=== PATIENT | female | born 1980 | race Caucasian/White ===

== ENCOUNTER 2016-03-27 10:28 | Emergency (ER) | payer SELFPAY ==
--- NOTE | 2016-03-27 11:17 | ERRECORD ---
[facility] EMERGENCY RECORD HPI URI (11:02 JLOY) CHIEF COMPLAINT: Patient presents for evaluation of sore throat, Patient presents for evaluation of nasal congestion, Patient presents for evaluation of cough, Patient presents for evaluation of Pt with 3-4 weeks of cough and congestion. Pt reports the past 2-3 weeks with high fevers to 103-104 and bodyaches. diagnosed with Flu A. Pt reports last week she started taking some leftover amoxicillin and her fevers resolved. Pt reprots she is here because she is having continued aches and pains and cough and wonders if she needs a stronger abx. HISTORIAN: History provided by patient. LOCATION: Symptoms are localized, most severe to throat, sternum. TIME COURSE: Patient unable to describe onset of symptoms, Symptoms are improving, are intermittent. ASSOCIATED WITH: Associated with chest pain, No associated chills, No associated fever, No associated headache, No associated neck pain, No associated shortness of breath. EXACERBATED BY: Patient's condition exacerbated by nothing. RELIEVED BY: Patient's condition relieved by nothing. ROS (11:04 JLOY) CONSTITUTIONAL: Historian denies chills, denies fever. EYES: Historian denies eye pain, denies eye redness, denies eye discharge. ENT: Historian reports rhinorrhea, reports sore throat. CARDIOVASCULAR: Historian reports chest pain. RESPIRATORY: Historian reports cough, denies shortness of breath, reports sputum. green. GI: Historian denies abdominal pain, denies diarrhea, denies nausea, denies vomiting. GENITOURINARY FEMALE: Historian denies dysuria, denies frequency, denies hematuria. MUSCULOSKELETAL: Historian reports arthralgias, reports myalgias. SKIN: Historian denies rash, denies skin changes. NEUROLOGIC: Historian denies dizziness, denies headache. PAST MEDICAL HISTORY MEDICAL HISTORY: Flu vaccine up to date, Tetanus immunization up to date, Pneumococcal vaccine not up to date. (10:35 JPAR) FEMALE SURGICAL HISTORY: Patient has no surgical history. (10:35 JPAR) PSYCHIATRIC HISTORY: Notes: ADHD, Anxiety. (10:35 JPAR) SOCIAL HISTORY: Patient denies alcohol use, Patient denies drug use, Patient has no smoking history. (10:35 JPAR) NOTES: Nursing records reviewed, Agree with nursing records. (11:05 JLOY) &a-1R&a+25V*p+0X*c0980V*c202B*c15G*c2P*p-0X&a-25V&a+1R Name: Vicky Kerr : 1980 F35 MedRec: [id number] AcctNum: [id number] Prepared: sharon Mar 27, 2016 11:11 by Interface Page 1 of 3 pMD [facility] EMERGENCY RECORD KNOWN ALLERGIES azithromycin: Reaction: Hives, Severity: Mild, Source: Patient codeine phosphate: Reaction: Hives, Severity: Mild, Source: Parent CURRENT MEDICATIONS No recorded medications VITAL SIGNS VITAL SIGNS: BP: 139/91, Pulse: 102, Resp: 16, Temp: 97.9 (Oral), Pain: 9, O2 sat: 100, Time: 03/27/2016 10:30. (10:30 JPAR) Pulse: 86, Time: 03/27/2016 11:00. (11:00 EPIE) PHYSICAL EXAM (11:05 [facility]) CONSTITUTIONAL: Vital signs reviewed, Patient appears non toxic, Patient alert and oriented to person, place and time. EYES: Eye exam included findings of eyelids normal to inspection, Pupils equally round and reactive to light, Conjunctiva normal. ENT: Pharynx exam normal, Uvula exam normal, Tonsil exam normal, Mouth exam normal, mucous membranes moist, Sinus exam included findings of frontal sinuses with, tenderness on the right, Maxillary sinuses with, tenderness on the right. NECK: Neck exam included findings of normal range of motion, Trachea midline, Cervical adenopathy, tender. RESPIRATORY CHEST: Respiratory exam included findings of no respiratory distress, Breath sounds clear, No wheezing, No rales, No rhonchi, Chest exam included findings of chest movement symmetrical. CARDIOVASCULAR: Cardiovascular exam included findings of heart rate regular rate and rhythm, Heart sounds normal. ABDOMEN FEMALE: Abdominal exam included findings of abdomen nontender, Bowel sounds normal. NEURO: Elpidio coma scale 15, Neuro exam findings include patient oriented to person, place and time, Speech normal. PSYCHIATRIC: Normal affect. PROBLEM LIST No recorded problems DIAGNOSIS (11:00 JLOY) FINAL: PRIMARY: FLU D/T OTH ID FLU VIR OTH RSP MANF. PRESCRIPTION (11:00 JLOY) Tessalon Perles: CAPSULE (HARD, SOFT, ETC.) : 100 mg : ORAL : Quantity: 100-200 Unit: mg Route: ORAL Schedule: every 8 hours PRN Dispense: 30 May substitute. Refills: No Refills . NOTES: No Refills. traMADol: TABLET : 50 mg : ORAL : Quantity: 1 Unit: tab(s) Route: ORAL Schedule: every 8 hours PRN Dispense: 20 &a-1R&a+25V*p+0X*v6833N*c202B*c15G*c2P*p-0X&a-25V&a+1R Name: Vicky Kerr : 1980 5 MedRec: [id number] AcctNum: [id number] Prepared: SatMar 27, 2016 11:11 by Interface Page 2 of 3 pMD [facility] EMERGENCY RECORD May substitute. Refills: No Refills POTENTIAL ALLERGY REACTION: 'codeine phosphate [codeine/codeine phosphate]' Override Rationale: Reviewed with patient. NOTES: ^s=No Refills No Refills. DISPOSITION PATIENT: Disposition Type: Discharge, Disposition: *Discharge Home. (11:00 GUILLERMINA) Patient left the department. (11:07 PHAN) Ornelas: PHAN=SHARIF Calabrese, Elizabeth SARMIENTO=MD Geronimo, Greg AVILA=SHARIF Jones, Roberto &a-1R&a+25V*p+0X*[id number]*c202B*c15G*c2P*p-0X&a-25V&a+1R Name: Vicky Kerr : 1980 F35 MedRec: [id number] AcctNum: [id number] Prepared: SatMar 27, 2016 11:11 by Interface Page 3 of 3 pMD MTDD
--- NOTE | 2016-03-27 11:23 | PICIS ---
[facility] EMERGENCY RECORD TRIAGE (SatMar 27, 2016 10:32 JPAR) TRIAGE NOTES: Cough and sore throat for 1 month now. (SatMar 27, 2016 10:32 JPAR) PATIENT: NAME: Vicky Kerr, AGE: 35, GENDER: female, : Sat1980, TIME OF GREET: SatMar 27, 2016 10:28, PREFERRED LANGUAGE: Albanian, ECODE BILLING MAP: [facility], SSN: [id number], Zip Code: [address], KG WEIGHT: 49.44, PHONE: , , , PERSON ID: [id number], PCP: Mayela Berman /Unruly. (SatMar 27, 2016 10:32 JPAR) COMPLAINT: ALLERGIES. (SatMar 27, 2016 10:32 JPAR) ADMISSION: URGENCY: 4 Non Urgent, ADMISSION SOURCE: Home, TRANSPORT: CAR, BED: TRIAGE. (SatMar 27, 2016 10:32 JPAR) ASSESSMENT: Assessment: Sore throat chronic cough, runny nose, Symptoms began off and on for 1 month, Symptoms began greater than 1 week ago. (10:35 JPAR) SIRS SCORING: Heart Rate 55-109 (0), Temp range 96.8-101.1 (0), respiratory rate 12-24 (0), Mental Status altered: no (0), Infection or Suspected Infection: No. (10:35 JPAR) TRIAGE SCREENING: Patient denies suicidal ideation, Patient denies presence of domestic violence. (10:35 JPAR) PROVIDERS: TRIAGE NURSE: Roberto Jones RN. (SatMar 27, 2016 10:32 JPAR) VITAL SIGNS: BP 139/91, Pulse 102, Resp 16, Temp 97.9, (Oral), Pain 9, O2 Sat 100, Time 03/27/2016 10:30. (10:30 JPAR) KNOWN ALLERGIES azithromycin: Reaction: Hives, Severity: Mild, Source: Patient codeine phosphate: Reaction: Hives, Severity: Mild, Source: Parent CURRENT MEDICATIONS No recorded medications VITAL SIGNS VITAL SIGNS: BP: 139/91, Pulse: 102, Resp: 16, Temp: 97.9 (Oral), Pain: 9, O2 sat: 100, Time: 03/27/2016 10:30. (10:30 JPAR) Pulse: 86, Time: 03/27/2016 11:00. (11:00 EPIE) NURSING ASSESSMENT: ENT (10:33 JPAR) CONSTITUTIONAL: Patient arrives ambulatory, Gait steady, History obtained from patient, Patient appears comfortable, Patient cooperative, Patient alert, Oriented to person, place and time, Skin warm, Skin dry, Skin normal in color, Mucous membranes pink, Mucous membranes moist. PAIN: aching pain, burning pain, to the throat, on a scale 0-10 patient rates pain as 9, pt in no distress. ENT: Nasal assessment findings include nose normal to inspection, Sinuses normal, Nasal mucosa normal, no bleeding, no discharge, no &a-1R&a+25V*p+0X*b0700I*c202B*c15G*c2P*p-0X&a-25V&a+1R Name: Vicky Krer : 1980 F35 MedRec: [id number] AcctNum: [id number] Prepared: SatMar 27, 2016 11:17 by Interface Page 1 of 4 pMD [facility] EMERGENCY RECORD complaint of congestion, no complaint of foreign body, Mouth and throat assessment findings include mouth inspection normal, Uvula normal, Tonsils, swollen +1 on the left, swollen +1 on the right, without exudates, Mucous membranes pink, and moist, Unable to swallow, complains of difficulty swallowing, no associated fever, no associated headache, no associated decrease in oral intake. RESPIRATORY/CHEST: Breath sounds clear, Respiratory assessment findings include respiratory effort easy, Respirations regular, Conversing normally, Neck and chest exam findings include trachea midline, Chest expansion equal, Chest movement symmetrical, no signs of distress, no retractions noted, no cyanosis, no jugular vein distension, no tenderness to palpation, no crepitus noted, no subcutaneous emphysema noted, no deformity noted, Associated with cough, dry, no associated fever, no associated fume exposure. SAFETY: Side rails up, Cart/Stretcher in lowest position, Call light within reach, Hospital ID band on. NURSING PROCEDURE: DISCHARGE NOTE (11:04 EPIE) DISCHARGE: Patient discharged to home, ambulating without assistance, family driving, accompanied by parent, Summary of Care printed/ provided, Discharge instructions given to patient, Simple or moderate discharge teaching performed, Prescriptions given and instructions on side effects given, Name of prescription(s) given: TESSALON PERLES, TRAMADOL, Above person(s) verbalized understanding of discharge instructions and follow-up care. BELONGINGS: Belongings and valuables with patient upon arrival to the Emergency Department include:, Belongings and valuables with patient at time of discharge include:, Belongings remain with patient, Valuables remain with patient. HPI URI (11:02 [facility]) CHIEF COMPLAINT: Patient presents for evaluation of sore throat, Patient presents for evaluation of nasal congestion, Patient presents for evaluation of cough, Patient presents for evaluation of Pt with 3-4 weeks of cough and congestion. Pt reports the past 2-3 weeks with high fevers to 103-104 and bodyaches. diagnosed with Flu A. Pt reports last week she started taking some leftover amoxicillin and her fevers resolved. Pt reprots she is here because she is having continued aches and pains and cough and wonders if she needs a stronger abx. HISTORIAN: History provided by patient. LOCATION: Symptoms are localized, most severe to throat, sternum. TIME COURSE: Patient unable to describe onset of symptoms, Symptoms are improving, are intermittent. ASSOCIATED WITH: Associated with chest pain, No associated chills, No associated fever, No associated headache, No associated neck pain, No associated shortness of breath. EXACERBATED BY: Patient's condition exacerbated &a-1R&a+25V*p+0X*t6697M*c202B*c15G*c2P*p-0X&a-25V&a+1R Name: Vicky Kerr : 1980 F35 MedRec: [id number] AcctNum: [id number] Prepared: SatMar 27, 2016 11:17 by Interface Page 2 of 4 pMD [facility] EMERGENCY RECORD by nothing. RELIEVED BY: Patient's condition relieved by nothing. ROS (11:04 [facility]) CONSTITUTIONAL: Historian denies chills, denies fever. EYES: Historian denies eye pain, denies eye redness, denies eye discharge. ENT: Historian reports rhinorrhea, reports sore throat. CARDIOVASCULAR: Historian reports chest pain. RESPIRATORY: Historian reports cough, denies shortness of breath, reports sputum. green. GI: Historian denies abdominal pain, denies diarrhea, denies nausea, denies vomiting. GENITOURINARY FEMALE: Historian denies dysuria, denies frequency, denies hematuria. MUSCULOSKELETAL: Historian reports arthralgias, reports myalgias. SKIN: Historian denies rash, denies skin changes. NEUROLOGIC: Historian denies dizziness, denies headache. PAST MEDICAL HISTORY MEDICAL HISTORY: Flu vaccine up to date, Tetanus immunization up to date, Pneumococcal vaccine not up to date. (10:35 JPAR) FEMALE SURGICAL HISTORY: Patient has no surgical history. (10:35 JPAR) PSYCHIATRIC HISTORY: Notes: ADHD, Anxiety. (10:35 JPAR) SOCIAL HISTORY: Patient denies alcohol use, Patient denies drug use, Patient has no smoking history. (10:35 JPAR) NOTES: Nursing records reviewed, Agree with nursing records. (11:05 JLOY) PHYSICAL EXAM (11:05 JLOY) CONSTITUTIONAL: Vital signs reviewed, Patient appears non toxic, Patient alert and oriented to person, place and time. EYES: Eye exam included findings of eyelids normal to inspection, Pupils equally round and reactive to light, Conjunctiva normal. ENT: Pharynx exam normal, Uvula exam normal, Tonsil exam normal, Mouth exam normal, mucous membranes moist, Sinus exam included findings of frontal sinuses with, tenderness on the right, Maxillary sinuses with, tenderness on the right. NECK: Neck exam included findings of normal range of motion, Trachea midline, Cervical adenopathy, tender. RESPIRATORY CHEST: Respiratory exam included findings of no respiratory distress, Breath sounds clear, No wheezing, No rales, No rhonchi, Chest exam included findings of chest movement symmetrical. CARDIOVASCULAR: Cardiovascular exam included findings of heart rate regular rate and rhythm, Heart sounds normal. ABDOMEN FEMALE: Abdominal exam included findings of abdomen &a-1R&a+25V*p+0X*p6873K*c202B*c15G*c2P*p-0X&a-25V&a+1R Name: Vicky Kerr : 1980 F35 MedRec: [id number] AcctNum: [id number] Prepared: Castillo Mar 27, 2016 11:17 by Interface Page 3 of 4 pMD [facility] EMERGENCY RECORD nontender, Bowel sounds normal. NEURO: Elpidio coma scale 15, Neuro exam findings include patient oriented to person, place and time, Speech normal. PSYCHIATRIC: Normal affect. EVENTS TRANSFER: Triage to Emergency Triage. (10:32 JPAR) Emergency Triage to Emergency Room -03. (10:33 EPIE) Removed from Emergency Emergency Room -03. (11:07 EPIE) PROBLEM LIST No recorded problems DIAGNOSIS (11:00 JLOY) FINAL: PRIMARY: FLU D/T OTH ID FLU VIR OTH RSP MANF. DISPOSITION PATIENT: Disposition Type: Discharge, Disposition: *Discharge Home. (11:00 JLOY) Patient left the department. (11:07 EPIE) INSTRUCTION (11: JLOY) DISCHARGE: INFLUENZA (ADULT). FOLLOWUP: [facility], /[facility], [address] [place] [id number], , Follow up with Primary Care Physician in 7-10 days. PRESCRIPTION (11:00 JLOY) Tessalon Perles: CAPSULE (HARD, SOFT, ETC.) : 100 mg : ORAL : Quantity: 100-200 Unit: mg Route: ORAL Schedule: every 8 hours PRN Dispense: 30 May substitute. Refills: No Refills . NOTES: No Refills. traMADol: TABLET : 50 mg : ORAL : Quantity: 1 Unit: tab(s) Route: ORAL Schedule: every 8 hours PRN Dispense: 20 May substitute. Refills: No Refills POTENTIAL ALLERGY REACTION: 'codeine phosphate [codeine/codeine phosphate]' Override Rationale: Reviewed with patient. NOTES: ^s=No Refills No Refills. IMAGING (11:05 EPIE) *DISCHARGE INSTRUCTIONS RECEIPT: Image captured from scanner. *SUPPLY CHARGE SHEET: Image captured from scanner. ADMIN (11: ) DIGITAL SIGNATURE: MD Melton Joshua. Ornelas: PHAN=SHARIF Calabrese Emily JLOY=MD Melton Joshua JPBERE=SHARIF Jones, Roberto &cookie-1R&a+25V*p+0X*o4940T*c202B*c15G*c2P*p-0X&a-25V&a+1R Name: Vicky Kerr : 1980 F35 MedRec: [id number] AcctNum: [id number] Prepared: Castillo Mar 27, 2016 11:17 by Interface Page 4 of 4 pMD MTDD
== END 2016-03-27 11:04 | disposition home or self-care (01) ==
LOC: NAV ERS 10:28
DX: J10.1 Influenza due to other identified influenza virus with other respiratory manifestations (principal); F41.9 Anxiety disorder, unspecified
CPT/HCPCS: 99283

== ENCOUNTER 2017-03-25 17:17 | Emergency (ER) | payer MEDICAID, SELFPAY ==
[2017-03-25] MEDS ORDERED: Ibuprofen 800 MG TAB ONE (18:08)
== END 2017-03-25 19:32 | disposition home or self-care (01) ==
LOC: NAV ERS 17:17 → EEVIPCON 17:17 → NAV ERS 19:32
DX: T74.21XA Adult sexual abuse, confirmed, initial encounter (principal); R10.2 Pelvic and perineal pain; F90.9 Attention-deficit hyperactivity disorder, unspecified type; F41.9 Anxiety disorder, unspecified
CPT/HCPCS: 99283

== ENCOUNTER 2017-09-24 22:40 | Emergency (ER) | payer MEDICAID ==
[2017-09-24 23:07] LABS: #Basophils 0.1 thou/uL (0.0-0.2); #Eosinphils 0.1 thou/uL (0.0-0.7); #Monocytes 0.5 thou/uL (0.11-0.59); #Neutrophils 5.6 thou/uL (1.40-6.50); %Basophils 1.1 % (0.0-1.0); %Eosinophils 0.9 % (0.0-10.0); %Lymphocytes 24.2 % (21.0-51.0); %Monocytes 5.9 % (0.0-10.0); Hemoglobin 11.7 g/dL (12.0-16.0); Mean Corpuscular HGB CONC 32.2 g/dL (32.0-36.0); Mean Corpuscular Hemoglobin 27.7 pg (27.0-31.0); Mean Corpuscular Volume 86.1 fL (78.0-98.0); Mean Platelet Volume 6.9 fL (7.4-10.4); Platelet Count 307 thou/uL (130-400); RBC Distribution Width 13.6 % (11.5-14.5); Red Blood Cell (RBC) Count 4.22 mill/uL (4.20-5.40); White Blood Cell (WBC) Count 8.3 thou/uL (4.8-10.8)
[2017-09-24 23:10] LABS: Manual Diff?? NO
[2017-09-24 23:15] LABS: Bilirubin Negative (Negative); Blood, Urine Negative (Negative); Clarity Clear (Clear); Glucose, Urine (Dipstick) Negative (Negative); Leukocyte Negative (Negative); Nitrite Negative (Negative); Protein, Urine (Dipstick) 100 mg/dL (Neg-Trace); Urobilinogen 0.2 mg/dL (0.2-1.0)
[2017-09-24 23:16] LABS: Specific Gravity, Urine 1.027 (1.002-1.036)
[2017-09-24 23:17] LABS: Bacteria/HPF None Seen HPF (None Seen); RBC/HPF None Seen HPF (0-3); Squamous Epithelial 0-3 HPF (0-3); WBC/HPF None Seen HPF (0-3)
[2017-09-24] MEDS ORDERED: Sodium Chloride 0.9% 1,000 ML ONE (23:17)
[2017-09-24 23:28] LABS: ALT (SGPT) 16 U/L (8-55); AST (SGOT) 18 U/L (5-34); Acetaminophen Less than 6.0 mcg/mL (10.0-30.0); Albumin 4.1 g/dL (3.5-5.0); Alcohol Less than 10 mg/dL (Less than 10); Alkaline Phosphatase 70 U/L (40-150); Anion Gap 14 mmol/L (10-20); BUN (Urea Nitrogen) 7 mg/dL (7.0-18.7); Bilirubin, Total 0.3 mg/dL (0.2-1.2); CK (CPK) 197 U/L (29-168); Calc. Creatinine Clearance 0 mL/min (70-130); Calcium 9.3 mg/dL (7.8-10.44); Carbon Dioxide 25 mmol/L (22-29); Chloride 106 mmol/L (98-107); Estimated GFR-MDRD Greater than 90; Globulin 3.1 g/dL (2.4-3.5); Glucose 93 mg/dL (70-105); Potassium 3.9 mmol/L (3.5-5.1); Protein, Total 7.2 g/dL (6.0-8.3); Salicylate Less than 8.0 mg/dL (15.0-30.0); Sodium 141 mmol/L (136-145)
[2017-09-24 23:28] LABS: Amphetamine Detected (NotDetected); Barbiturates Screen Not Detected (NotDetected); Benzodiazepine Screen Not Detected (NotDetected); Cocaine Metabolite Screen Not Detected (NotDetected); Medtox Control Line Valid? VALID (VALID); Methadone Not Detected (NotDetected); Methamphetamine Detected (NotDetected); Opiate Screen Not Detected (NotDetected); Oxycodone Screen Not Detected (NotDetected); Phencyclidine (PCP) Not Detected (NotDetected); THC/Cannabinoid Screen Not Detected (NotDetected); Tricyclic Screen Not Detected (NotDetected)
[2017-09-24] MEDS ORDERED: Lorazepam 2 MG/ML VIAL ONE (23:40)
== END 2017-09-24 23:55 ==
LOC: NAV ERS 22:40
DX: F15.10 Other stimulant abuse, uncomplicated (principal)
CPT/HCPCS: 36415; 51701; 80053; 80306; 80307; 81003; 81015; 82550; 85025; 96361; 96374; A4353; J2060; J7050

== ENCOUNTER 2019-04-09 22:30 | Emergency (ER) | payer MEDICAID, SELFPAY ==
[2019-04-09 22:53] LABS: Bilirubin Negative (Negative); Blood, Urine Negative (Negative); Clarity Clear (Clear); Glucose, Urine (Dipstick) Negative (Negative); Leukocyte Negative (Negative); Nitrite Negative (Negative); Protein, Urine (Dipstick) Negative (Neg-Trace); Urobilinogen 0.2 mg/dL (Less than 2)
[2019-04-09 22:54] LABS: Pregnancy Test - Urine (BHCG) Negative (Negative); Pregu Control Background? CLEAR/WHITE (CLR/WHITE); Pregu Control Bar Appear? YES (CONTROL BAR); Specific Gravity 1.025 (1.002-1.036)
[2019-04-09 22:59] LABS: #Basophils 0.1 thou/uL (0.0-0.2); #Monocytes 0.5 thou/uL (0.11-0.59); #Neutrophils 3.6 thou/uL (1.40-6.50); %Eosinophils 0.7 % (0.0-10.0); %Monocytes 8.6 % (0.0-10.0); %Neutrophils 57.7 % (42.0-75.0); Hemoglobin 10.2 g/dL (12.0-16.0); Mean Corpuscular HGB CONC 31.5 g/dL (32.0-36.0); Mean Corpuscular Hemoglobin 26.6 pg (27.0-31.0); Mean Corpuscular Volume 84.3 fL (78.0-98.0); Mean Platelet Volume 5.7 fL (7.4-10.4); Platelet Count 394 thou/uL (130-400); RBC Distribution Width 13.8 % (11.5-14.5); Red Blood Cell (RBC) Count 3.84 mill/uL (4.20-5.40); White Blood Cell (WBC) Count 6.1 thou/uL (4.8-10.8)
[2019-04-09] MEDS ORDERED: Potassium Chloride 20 MEQ TAB ONE (23:17)
[2019-04-09 23:19] LABS: ALT (SGPT) 10 U/L (8-55); AST (SGOT) 14 U/L (5-34); Albumin 3.9 g/dL (3.5-5.0); Alkaline Phosphatase 72 U/L (40-110); Anion Gap 14 mmol/L (10-20); BUN (Urea Nitrogen) 11 mg/dL (7.0-18.7); Bilirubin, Total 0.3 mg/dL (0.2-1.2); Calc. Creatinine Clearance 0 mL/min (70-130); Calcium 8.7 mg/dL (7.8-10.44); Carbon Dioxide 25 mmol/L (22-29); Chloride 104 mmol/L (98-107); Estimated GFR-MDRD Greater than 90; Globulin 3.3 g/dL (2.4-3.5); Glucose 61 mg/dL (70-105); Lipase 22 U/L (8-78); Protein, Total 7.2 g/dL (6.0-8.3); Sodium 140 mmol/L (136-145)
[2019-04-09 23:20] LABS: Potassium 2.5 mmol/L (3.5-5.1)
[2019-04-09] MEDS ORDERED: Ibuprofen 200 MG TAB ONE ×2 (23:21→23:22)
--- NOTE | 2019-04-09 23:29 | CT ---
CT Stone Protocol History: Abdominal pain Comparison: CT abdomen and pelvis 2018 Findings: Lung bases are clear. No pericardial effusion. No nephroureterolithiasis or hydroureteronephrosis. No secondary evidence of a recently passed stone. Slight elbow enlargement of the right adnexal mass. Small volume free fluid within the pelvis. This a dnexal mass measures up to 10 cm in craniocaudal dimension. No definite left adnexal mass is appreciated as was seen on the prior exam. The appendix is felt to be visualized and is normal. No retroperitoneal periaortic adenopathy. Simple cyst hepatic segment 5. Noncontrast evaluation of the spleen, pancreas, adrenal glands are unremarkable. No acute osseous abnormality. Impression: 1. Enlarging right adnexal mass. This may reflect an endometrioma or malignant process. Nonemergent p elvic MRI with and without contrast recommended. 2. Small volume free fluid in the pelvis. 3. No nephroureterolithiasis or hydroureteronephrosis. No secondary evidence of a recently passed sto ne.
== END 2019-04-10 00:05 | disposition home or self-care (01) ==
LOC: NAV ERS 22:30
DX: N83.8 Other noninflammatory disorders of ovary, fallopian tube and broad ligament (principal); E87.6 Hypokalemia; E16.2 Hypoglycemia, unspecified; E78.5 Hyperlipidemia, unspecified; F41.9 Anxiety disorder, unspecified; F90.9 Attention-deficit hyperactivity disorder, unspecified type; Z79.899 Other long term (current) drug therapy
CPT/HCPCS: 74176; 80053; 81003; 81025; 83690; 85025

== ENCOUNTER 2019-10-18 08:03 | Emergency (ER) | payer OTHER ==
[2019-10-18] MEDS ORDERED: Iopamidol 370 76% 100 ML VIAL ONE (09:00)
[2019-10-18 09:06] LABS: #Basophils 0.1 thou/uL (0.0-0.2); #Lymphocytes 1.8 thou/uL (1.20-3.40); #Monocytes 0.8 thou/uL (0.11-0.59); #Neutrophils 7.2 thou/uL (1.40-6.50); %Eosinophils 0.3 % (0.0-10.0); %Monocytes 7.6 % (0.0-10.0); %Neutrophils 73.1 % (42.0-75.0); Hemoglobin 9.1 g/dL (12.0-16.0); Mean Corpuscular HGB CONC 30.6 g/dL (32.0-36.0); Mean Corpuscular Hemoglobin 27.6 pg (27.0-31.0); Mean Corpuscular Volume 90.1 fL (78.0-98.0); Mean Platelet Volume 5.7 fL (7.4-10.4); Platelet Count 553 thou/uL (130-400); RBC Distribution Width 14.5 % (11.5-14.5); Red Blood Cell (RBC) Count 3.32 mill/uL (4.20-5.40); White Blood Cell (WBC) Count 9.9 thou/uL (4.8-10.8)
[2019-10-18] MEDS ORDERED: Ketorolac Tromethamine 30 MG/ML VIAL ONE (09:10)
[2019-10-18] MEDS ORDERED: Sodium Chloride 0.9% 1,000 ML ONE (09:10)
[2019-10-18 09:23] LABS: ALT (SGPT) 19 U/L (8-55); AST (SGOT) 14 U/L (5-34); Albumin 3.9 g/dL (3.5-5.0); Alkaline Phosphatase 167 U/L (40-110); Anion Gap 15 mmol/L (10-20); BUN (Urea Nitrogen) 11 mg/dL (7.0-18.7); Bilirubin, Total 0.2 mg/dL (0.2-1.2); Calc. Creatinine Clearance 0 mL/min (70-130); Calcium 9.3 mg/dL (7.8-10.44); Carbon Dioxide 25 mmol/L (22-29); Chloride 104 mmol/L (98-107); Estimated GFR-MDRD Greater than 90; Globulin 3.7 g/dL (2.4-3.5); Glucose 101 mg/dL (70-105); Lipase 15 U/L (8-78); Potassium 3.1 mmol/L (3.5-5.1); Protein, Total 7.6 g/dL (6.0-8.3); Sodium 141 mmol/L (136-145)
[2019-10-18] MEDS ORDERED: Morphine 4 MG/ML VIAL ONE (09:24)
[2019-10-18] MEDS ORDERED: Ondansetron PF 4 MG/2 ML Vial ONE (09:24)
[2019-10-18] MEDS ORDERED: Sodium Chloride 0.9% 100 ML ONE (10:24)
[2019-10-18] MEDS ORDERED: Piperacillin/Tazobactam 3.375 GM VIAL ONE (10:24)
[2019-10-18 10:47] LABS: Bilirubin Negative (Negative); Blood, Urine Trace (Negative); Clarity Clear (Clear); Glucose, Urine (Dipstick) Negative (Negative); Ketone, Urine Negative (Negative); Leukocyte Negative (Negative); Nitrite Negative (Negative); Protein, Urine (Dipstick) Negative (Neg-Trace)
--- NOTE | 2019-10-18 10:48 | CT ---
ABDOMEN AND PELVIC CT SCAN WITH IV CONTRAST: HISTORY: Right lower quadrant abdominal pain status post hysterectomy. COMPARISON: Noncontrast abdomen and pelvic CT scan, 04/09/2019. FINDINGS: Visualized lung bases are unremarkable. Circumscribed 1.3 cm diameter low-attenuation focus in the right lobe of the liver is stable. Gallbl adder, common bile duct, pancreas, spleen, and adrenal glands are unremarkable. No evidence for sabino l calculus or acute obstruction. No solid or cystic renal mass. In the pelvis, there is a bilobe d fluid collection with a minimally enhancing wall around it, the largest component of this measures 4.8 x 5.8 x 6.3 cm. The smaller component of this bilobed fluid collection measures 1.9 x 2.2 x 1.8 cm. There is some nonspecific scattered pelvic fat stranding. This bilobed fluid collection appears to be primarily positioned between the rectum and urinary bladder. Resulting in some left displaceme nt of the rectal sigmoid portion of the colon. IMPRESSION: Bilobed fluid collection in the pelvis as above, evidence for a postoperative fluid collection withou t evidence for gas within the collection. Nonspecific fat stranding within the lower abdomen and pel vis. No evidence for other acute process. This abnormal fluid collection does not appear to be amenable to percutaneous drainage. POS: OFF
[2019-10-18 11:14] LABS: RBC/HPF 0-3 HPF (0-3); WBC/HPF 0-3 HPF (0-3)
[2019-10-18 11:15] LABS: Specific Gravity, Urine Greater than 1.050 (1.005-1.030)
== END 2019-10-18 11:05 | disposition short-term general hospital (02) ==
LOC: NAV ERS 08:03
DX: R10.31 Right lower quadrant pain (principal); F41.9 Anxiety disorder, unspecified; F90.9 Attention-deficit hyperactivity disorder, unspecified type; F17.210 Nicotine dependence, cigarettes, uncomplicated; J45.909 Unspecified asthma, uncomplicated; Z79.899 Other long term (current) drug therapy
CPT/HCPCS: 74177; 80053; 81003; 81015; 83690; 85025; 96365; 96375; J1885; J2270; J2405; J2543; J3490; J7050; Q9967

== ENCOUNTER 2019-10-27 19:19 | Emergency (ER) | payer OTHER ==
[2019-10-27] MEDS ORDERED: traMADol HCl 50 MG TAB ONE (19:58)
== END 2019-10-27 19:57 | disposition home or self-care (01) ==
LOC: NAV ERS 19:19
DX: G89.18 Other acute postprocedural pain (principal); R10.31 Right lower quadrant pain; F90.9 Attention-deficit hyperactivity disorder, unspecified type; F17.290 Nicotine dependence, other tobacco product, uncomplicated; J45.909 Unspecified asthma, uncomplicated; Z79.899 Other long term (current) drug therapy
CPT/HCPCS: 99283

== ENCOUNTER 2019-10-30 15:56 | Emergency (ER) | payer OTHER ==
[~2019-10-30 15:56] MED LIST: Iopamidol 370 76% 100 ML VIAL ONE
[2019-10-30] MEDS ORDERED: Sodium Chloride 0.9% 1,000 ML ONE (16:26)
[2019-10-30] MEDS ORDERED: Ketorolac Tromethamine 30 MG/ML VIAL ONE (16:26)
[2019-10-30 16:39] LABS: #Eosinphils 0.1 thou/uL (0.0-0.7); #Lymphocytes 0.8 thou/uL (1.20-3.40); #Monocytes 0.2 thou/uL (0.11-0.59); #Neutrophils 9.2 thou/uL (1.40-6.50); %Basophils 0.3 % (0.0-1.0); %Eosinophils 0.6 % (0.0-10.0); %Lymphocytes 7.6 % (21.0-51.0); %Monocytes 1.5 % (0.0-10.0); %Neutrophils 90.1 % (42.0-75.0); Hemoglobin 10.5 g/dL (12.0-16.0); Mean Corpuscular Hemoglobin 27.6 pg (27.0-31.0); Mean Platelet Volume 5.8 fL (7.4-10.4); Platelet Count 483 thou/uL (130-400); RBC Distribution Width 14.4 % (11.5-14.5); Red Blood Cell (RBC) Count 3.81 mill/uL (4.20-5.40); White Blood Cell (WBC) Count 10.2 thou/uL (4.8-10.8)
[2019-10-30 16:54] LABS: ALT (SGPT) 15 U/L (8-55); AST (SGOT) 15 U/L (5-34); Albumin 3.7 g/dL (3.5-5.0); Alkaline Phosphatase 112 U/L (40-110); Anion Gap 12 mmol/L (10-20); BUN (Urea Nitrogen) 8 mg/dL (7.0-18.7); Bilirubin, Total 0.2 mg/dL (0.2-1.2); Calc. Creatinine Clearance 0 mL/min (70-130); Calcium 8.6 mg/dL (7.8-10.44); Carbon Dioxide 26 mmol/L (22-29); Chloride 104 mmol/L (98-107); Estimated GFR-MDRD 87; Globulin 3.3 g/dL (2.4-3.5); Glucose 115 mg/dL (70-105); Potassium 3.9 mmol/L (3.5-5.1); Sodium 138 mmol/L (136-145)
[2019-10-30 16:57] LABS: Lipase 22 U/L (8-78)
--- NOTE | 2019-10-30 17:23 | CT ---
EXAM: CT ABDOMEN AND PELVIS HISTORY: Abdominal pain. Status post hysterectomy. Recent infected fluid in the pelvis. COMPARISON: 10/18/2019 Procedure: Multiple contiguous axial images were obtained and a CT of the abdomen and pelvis with IV contrast. C oronal reformats were performed. FINDINGS: Lower Chest: Minimal dependent atelectatic change Vessels: Normal caliber aorta. Heart: Normal heart size Abdomen: Portal vein:Patent Gallbladder: Contracted, likely due to a nonfasting state Liver: Stable hypodensity in the right hepatic lobe compatible with hepatic cysts. Additional smaller hypodensities are redemonstrated. No enhancing masses within the liver Pancreas: within normal limits. Spleen: within normal limits. Adrenals: within normal limits. Kidneys: Symmetric enhancement. No obstructive uropathy. Peritoneum: No ascites or free air, no fluid collection. Bowel: Limited evaluation due to the lack of oral contrast administration. No evidence of bowel obstr uction. Ileocecal junction is unremarkable. Normal caliber appendix. Scattered fecal material in a nondistended, nondilated colon. There is mild mucosal thickening involving the distal sigmoid colon a nd rectum. Mucosal prominence may in part due to inadequate distention. Possible focus of phlegmon adjacent to the sigmoid colon measuring 1.2 x 1.6 cm with a small focus of air. Second consideration could be just a loop of unopacified bowel. Mesentery and Retroperitoneum: No enlarged mesenteric or retroperitoneal lymph nodes. Abdominal Wall: within normal limits. Pelvis: Reproductive Organs: Surgically absent uterus Pelvis: No mass, lymphadenopathy, free air. Previous noted fluid collection has resolved. Minimal str anding and minimal fluid in the posterior aspect of the pelvis is identified. No evidence of a intrapelvic abscess. Bladder: within normal limits. Bones: within normal limits. IMPRESSION: 1. Interval resolution of previously noted complex fluid collection in the pelvis. 2. No acute abnormality with regards to the abdomen. 3. Mild mucosal thickening involving the distal sigmoid colon, nonspecific. Findings may be due to in adequate distention. Possible small focus of phlegmon adjacent to the sigmoid colon measuring 1.2 x 1.6 cm. Clinical correlation for proctitis in the appropriate clinical setting is recommended. Genera l surgical consultation and repeat CT with rectal contrast. Results study discussed with Dr. Flores 10/30/2019 at 5:18 PM Code CR
[2019-10-30 17:44] LABS: Bilirubin Negative (Negative); Blood, Urine Trace (Negative); Clarity Clear (Clear); Glucose, Urine (Dipstick) Negative (Negative); Ketone, Urine Negative (Negative); Leukocyte Negative (Negative); Nitrite Negative (Negative); Protein, Urine (Dipstick) Negative (Neg-Trace)
[2019-10-30 17:57] LABS: RBC/HPF 0-3 HPF (0-3)
--- NOTE | 2019-10-30 19:26 | CT ---
ABDOMEN CT WITHOUT CONTRAST PELVIC CT WITHOUT CONTRAST 10/30/19 HISTORY: Previous pelvic infection. Evaluate for possible abscess/phlegmon. COMPARISON: 10/30/19 at 4:47 p.m. FINDINGS: Abdomen and pelvic CT are repeated with rectal contrast. Dependent atelectatic changes in the lung bases are redemonstrated. No acute abnormality with regards to the solid organs. There is excretion of contrast into a normal caliber intrarenal and extrarenal collecting system. Multiple normal caliber small bowel loops are identified. Normal ileocecal junctio n. Appendix is difficult to appreciate. No obvious secondary signs of appendicitis. Contrast opacifie s the colon. Previously noted mucosal prominence of the distal sigmoid colon and rectum is less evide nt after adequate contrast distention. There does appear to be some mild nonspecific pelvic fat stran ding and fluid. No evidence of abscess or previously suggested possible phlegmon. PELVIC CT: Contrast is present in the urinary bladder. Uterus is surgically absent. IMPRESSION: 1. Adequate distention of the sigmoid colon and rectum after the administration of rectal contra st. No obvious inflammatory changes of the mucosa are appreciated. 2. Residual fluid and mild pelvic fat stranding may represent sequela of previous surgery. 3. Limited evaluation of the appendix on the current exam. No secondary signs of appendicitis. POS: PPP
== END 2019-10-30 19:05 | disposition home or self-care (01) ==
LOC: NAV ERS 15:56
DX: G89.18 Other acute postprocedural pain (principal); R10.11 Right upper quadrant pain; J45.909 Unspecified asthma, uncomplicated; F90.9 Attention-deficit hyperactivity disorder, unspecified type; F41.9 Anxiety disorder, unspecified; G47.00 Insomnia, unspecified; F17.290 Nicotine dependence, other tobacco product, uncomplicated; Z79.899 Other long term (current) drug therapy
CPT/HCPCS: 74176; 74177; 80053; 81003; 81015; 83690; 85025; 96361; 96374; J1885; J7050; Q9967

== ENCOUNTER 2020-04-11 20:07 | Outpatient (CLI) | payer OTHER ==
--- NOTE | 2020-04-11 21:28 | RAD ---
THORACOLUMBAR SPINE TWO VIEWS: History: Pain Comparison: None FINDINGS: The lumbar spine has 13 degrees of levoscoliosis. No acute fracture or malalignment. No significant l isthesis. Low grade facet arthrosis L4-5 and L5-S1. IMPRESSION: Low grade 13 degree lumbar levoscoliosis. POS: HOME
--- NOTE | 2020-04-11 21:30 | RAD ---
CHEST TWO VIEWS: History: Thoracic spine pain Comparison: None FINDINGS: Low grade dextroscoliosis of the thoracic space approximately 10 degrees. Lungs are clear. No pneumot horax. No effusion. Cardiac silhouette and mediastinal contours are within normal limits. IMPRESSION: 10 degrees dextroscoliosis of the thoracic spine. No acute thoracic abnormality. POS: HOME
== END 2020-04-11 20:08 | disposition home or self-care (01) ==
LOC: NAV RAD 20:07
PROVIDERS: ATTEND Nurse Practitioner Family
DX: M54.6 Pain in thoracic spine (principal); M41.9 Scoliosis, unspecified
CPT/HCPCS: 71046; 72080

== ENCOUNTER 2020-04-11 20:54 | Emergency (ER) | payer OTHER ==
[2020-04-12 13:45] LABS: SARS-CoV-2 PCR by NAA Not Detected (NotDetected)
== END 2020-04-11 21:50 | disposition home or self-care (01) ==
LOC: NAV ERS 20:54
DX: J06.9 Acute upper respiratory infection, unspecified (principal); Z20.822 Contact with and (suspected) exposure to COVID-19; J45.909 Unspecified asthma, uncomplicated; Z79.899 Other long term (current) drug therapy; F17.210 Nicotine dependence, cigarettes, uncomplicated; M54.6 Pain in thoracic spine; M41.9 Scoliosis, unspecified
CPT/HCPCS: 71046; 72080; 87635; 99283; U0003; U0005

== ENCOUNTER 2020-10-01 11:31 | Emergency (ER) | payer OTHER, SELFPAY | END 2020-10-01 12:08 | disposition left against medical advice (07) | LOC: NAV ERS 11:31 | DX: Z53.21 Procedure and treatment not carried out due to patient leaving prior to being seen by health care provider (principal) ==

== ENCOUNTER 2023-07-23 16:52 | Emergency (ER) | payer MEDICAID, OTHER, SELFPAY ==
[2023-07-23] MEDS ORDERED: Ondansetron ODT 4 MG TAB ONE (17:41)
== END 2023-07-23 17:50 | disposition short-term general hospital (02) ==
LOC: NAV ERS 16:52
DX: M79.605 Pain in left leg (principal); J45.909 Unspecified asthma, uncomplicated
CPT/HCPCS: 99284; Q0162

== ENCOUNTER 2024-02-05 20:17 | Emergency (ER) | payer SELFPAY | END 2024-02-05 20:45 | disposition home or self-care (01) | LOC: NAV ERS 20:17 | DX: S80.02XA Contusion of left knee, initial encounter (principal); S80.01XA Contusion of right knee, initial encounter; I95.9 Hypotension, unspecified; K02.9 Dental caries, unspecified; W18.30XA Fall on same level, unspecified, initial encounter | CPT/HCPCS: 99283 ==

== ENCOUNTER 2024-10-10 10:31 | Emergency (ER) | payer SELFPAY ==
[2024-10-10 11:12] LABS: Glucose, Urine (Dipstick) Negative (Negative); Leukocyte Small (Negative); Protein, Urine (Dipstick) Negative (Neg-Trace); Specific Gravity, Urine 1.020 (1.005-1.030)
[2024-10-10 11:21] LABS: Cocaine Metabolite Screen Negative (Negative); THC/Cannabinoid Screen Negative (Negative); Tricyclic Screen Negative (Negative)
[2024-10-10 11:22] LABS: Bacteria/HPF 4+ HPF (None Seen); CAUTI Indications for Culture Alt mental st,lethar
[2024-10-10 11:23] LABS: Urine Culture Reflex No No
[2024-10-10 11:29] LABS: #Basophils 0.0 thou/uL (0.0-0.2); #Eosinophils 0.0 thou/uL (0.0-0.7); #Lymphocytes 1.3 thou/uL (1.20-3.40); #Monocytes 0.2 thou/uL (0.11-0.59); #Neutrophils 2.4 thou/uL (1.40-6.50); %Basophils 0.9 % (0.0-1.0); %Eosinophils 1.0 % (0.0-10.0); %Lymphocytes 31.9 % (21.0-51.0); %Monocytes 4.8 % (0.0-10.0); %Neutrophils 61.4 % (42.0-75.0); Hematocrit 40.5 % (36.0-47.0); Hemoglobin 13.3 g/dL (12.0-16.0); Mean Corpuscular Hemoglobin 30.9 pg (27.0-31.0); Mean Corpuscular Volume 94.3 fl (78.0-98.0); Platelet Count 376 10x3/uL (130-400); Red Blood Cell (RBC) Count 4.29 mill/uL (4.20-5.40); White Blood Cell (WBC) Count 3.9 10x3/uL (4.8-10.8)
[2024-10-10 11:56] LABS: ALT (SGPT) 14 U/L (Less than 34); AST (SGOT) 19 U/L (11-34); Albumin 4.1 g/dL (3.1-4.5); Alkaline Phosphatase 85 U/L (40-110); Anion Gap 13 mmol/L (10-20); BUN (Urea Nitrogen) 7 mg/dL (7.0-18.7); Bilirubin, Total 0.2 mg/dL (0.3-1.2); Calc. Creatinine Clearance 0 mL/min (70-130); Calcium 9.1 mg/dL (7.8-10.44); Carbon Dioxide 30 mmol/L (22-29); Chloride 104 mmol/L (98-107); Globulin 3.5 g/dL (2.4-3.5); Glucose 91 mg/dL (70-105); Potassium 3.5 mmol/L (3.5-5.1); Sodium 143 mmol/L (136-145)
[2024-10-10 11:58] LABS: Acetaminophen Less than 10 mcg/mL (Less than 10); Salicylate Less than 8.0 mg/dL (Less than 8.0)
== END 2024-10-10 21:02 ==
LOC: NAV ERS 10:31
DX: F29 Unspecified psychosis not due to a substance or known physiological condition (principal); F17.290 Nicotine dependence, other tobacco product, uncomplicated
CPT/HCPCS: 70450; 80053; 80306; 80307; 81001; 84443; 85025; 93005

== ENCOUNTER 2024-10-23 10:30 | Emergency (ER) | payer SELFPAY ==
[2024-10-23 11:32] LABS: #Basophils 0.1 thou/uL (0.0-0.2); #Eosinophils 0.0 thou/uL (0.0-0.7); #Lymphocytes 0.8 thou/uL (1.20-3.40); #Monocytes 0.2 thou/uL (0.11-0.59); #Neutrophils 4.5 thou/uL (1.40-6.50); %Basophils 1.0 % (0.0-1.0); %Eosinophils 0.3 % (0.0-10.0); %Lymphocytes 14.3 % (21.0-51.0); %Monocytes 3.7 % (0.0-10.0); %Neutrophils 80.6 % (42.0-75.0); Hematocrit 41.9 % (36.0-47.0); Hemoglobin 14.1 g/dL (12.0-16.0); Mean Corpuscular Hemoglobin 30.4 pg (27.0-31.0); Mean Corpuscular Volume 90.4 fl (78.0-98.0); Platelet Count 374 10x3/uL (130-400); Red Blood Cell (RBC) Count 4.64 mill/uL (4.20-5.40); White Blood Cell (WBC) Count 5.6 10x3/uL (4.8-10.8)
[2024-10-23 11:41] LABS: Glucose, Urine (Dipstick) Negative (Negative); Leukocyte Trace (Negative); Protein, Urine (Dipstick) Negative (Neg-Trace); Specific Gravity, Urine 1.015 (1.005-1.030)
[2024-10-23 11:46] LABS: ALT (SGPT) 13 U/L (Less than 34); AST (SGOT) 28 U/L (11-34); Albumin 3.9 g/dL (3.1-4.5); Alkaline Phosphatase 96 U/L (40-110); Anion Gap 15 mmol/L (10-20); BUN (Urea Nitrogen) 6 mg/dL (7.0-18.7); Bilirubin, Total 0.3 mg/dL (0.3-1.2); Calc. Creatinine Clearance 0 mL/min (70-130); Calcium 9.1 mg/dL (7.8-10.44); Carbon Dioxide 28 mmol/L (22-29); Chloride 101 mmol/L (98-107); Globulin 3.6 g/dL (2.4-3.5); Glucose 104 mg/dL (70-105); Potassium 3.3 mmol/L (3.5-5.1); Sodium 141 mmol/L (136-145)
[2024-10-23 12:25] LABS: Cocaine Metabolite Screen Negative (Negative); THC/Cannabinoid Screen Negative (Negative); Tricyclic Screen Negative (Negative)
[2024-10-23] MEDS ORDERED: Acetaminophen 500 MG TAB ONE (12:39)
== END 2024-10-23 12:46 | disposition home or self-care (01) ==
LOC: NAV ERS 10:30
DX: F41.9 Anxiety disorder, unspecified (principal); F17.290 Nicotine dependence, other tobacco product, uncomplicated
CPT/HCPCS: 36415; 80053; 80306; 81001; 85025; 99283